=== PATIENT | female | born 2000 | race Hispanic/Latino ===

== ENCOUNTER 2025-01-16 20:37 | Emergency (ER) | payer OTHER | END 2025-01-16 22:38 | disposition short-term general hospital (02) | LOC: ERS 20:37 → EEVIPCON 20:37 → ERS 22:38 | DX: Z04.41 Encounter for examination and observation following alleged adult rape (principal); O99.612 Diseases of the digestive system complicating pregnancy, second trimester; K62.5 Hemorrhage of anus and rectum; O99.342 Other mental disorders complicating pregnancy, second trimester; F31.9 Bipolar disorder, unspecified; O9A.212 Injury, poisoning and certain other consequences of external causes complicating pregnancy, second trimester; S00.531A Contusion of lip, initial encounter; Z3A.00 Weeks of gestation of pregnancy not specified; Z79.899 Other long term (current) drug therapy; X58.XXXA Exposure to other specified factors, initial encounter | CPT/HCPCS: 99285 ==